=== PATIENT | female | born 1975 | race Caucasian/White ===

== ENCOUNTER → 2018-05-13 | Outpatient (CLI) | payer BC ==
[~2018-05-13] MED LIST: LEVO500T2 PO
== END | disposition home or self-care (01) ==
LOC: OIH 11:24
PROVIDERS: ATTEND Physician Assistant Medical
DX: M54.2 Cervicalgia (principal); M54.5 Low back pain
CPT/HCPCS: 72040; 72100

== ENCOUNTER 2019-06-22 10:06 | Day surgery (SDC) | payer BC ==
[2019-06-20 11:06] VITALS: BP 142/79
[2019-06-21] MEDS: CLINDAMYCIN 900 MG/D5% WATER 50 ML IV SCH (16:00)
[2019-06-22] VITALS (15 sets, daily range): BP systolic 74–128; BP diastolic 55–74
[~2019-06-22] VITALS: Ht 174 cm; Wt 99.8 kg
[~2019-06-22 10:06] MED LIST changes: -LEVO500T2 PO; +SODIUM CHLORIDE 0.9% 1000ML 1,000 ML IV SCH
[2019-06-22] MEDS ORDERED: CLINDAMYCIN 600 MG/D5% WATER 0 ML IV ONE (11:56)
[2019-06-22] MEDS ORDERED: BUPIVACAINE/PF 0.5% 30ML VIAL ONE (11:56)
[2019-06-22] MEDS: CLINDAMYCIN 900 MG/D5% WATER 50 ML IV SCH (12:20)
[2019-06-22] MEDS ORDERED: ONDANSETRON HCL 4 MG/2 ML VIAL ONE (12:23)
[2019-06-22] MEDS ORDERED: MIDAZOLAM HCL 1 MG/ML 2ML VIAL ONE (12:23)
[2019-06-22] MEDS ORDERED: ROCURONIUM 10MG/1ML SYR 10 MG/ML ML ONE (12:27)
[2019-06-22] MEDS ORDERED: FENTANYL CITRATE PF 50 MCG/1 ML 2ML VIAL ONE ×3 (12:27→14:33)
[2019-06-22] MEDS ORDERED: PROPOFOL 10 MG/ML 20ML VIAL IV ONE (12:27)
[2019-06-22] MEDS ORDERED: NEOSTIGMINE 5MG/5ML SYR IV ONE (12:47)
[2019-06-22] MEDS ORDERED: GLYCOPYRROLATE 1 MG/5 ML SYRINGE ONE (12:47)
--- NOTE | 2019-06-22 15:00 | NUR ---
POST RECEIVED PT FROM PACU, S/P LAP ANA SMALL DRESSINGS TO ABDOMEN X 4 DRY AND INTACT, PT AWAKE AND ALERT,NO DISTRESS NOTED,PT DENIED ANY PAIN OR DISCOMFORTS. FAMILY AT BEDSIDE. PLAN OF CARE DISCUSS WITH PATIENT/ SPOUSE
--- NOTE | 2019-06-22 15:33 | NUR ---
dc pt dc home via wc, no distress noted. pt denied any pain or discomforts. pt accompanied by spouse , small dressings to abd x 4 dry and intact .
== END 2019-06-22 15:33 | disposition home or self-care (01) ==
LOC: DAH 10:06 → SUH 10:06
PROVIDERS: ATTEND Student in an Organized Health Care Education/Training Program
DX: K80.20 Calculus of gallbladder without cholecystitis without obstruction (principal); K21.9 Gastro-esophageal reflux disease without esophagitis; Z88.0 Allergy status to penicillin; Z88.1 Allergy status to other antibiotic agents; Z79.899 Other long term (current) drug therapy; Z90.710 Acquired absence of both cervix and uterus; Z98.890 Other specified postprocedural states; Z82.49 Family history of ischemic heart disease and other diseases of the circulatory system; Z83.3 Family history of diabetes mellitus
CPT/HCPCS: 47562; 88304; A4215; A4221; A4222; A4223; A4649 ×4; A4663; A4930; A6206; C1769 ×3; J2250; J2405; J2704; J2710; J3010 ×3; J3490 ×3; J7030 ×2